=== PATIENT | male | born 1975 | race Caucasian/White ===

== ENCOUNTER 2020-02-02 03:09 | Inpatient (IN) | payer OTHER ==
[~2020-02-02] VITALS: Ht 185.4 cm; Wt 130.6 kg
[2020-02-02] MEDS ORDERED: MORPHINE SULFATE 4 MG/ML, 1ML ONE ×2 (03:28→03:49)
[2020-02-02] MEDS ORDERED: ONDANSETRON 2MG/ML, 2ML ONE ×2 (03:28→12:52)
[2020-02-02] MEDS ORDERED: ONDANSETRON 2MG/ML, 2ML IVPush ONE (03:30)
[2020-02-02] MEDS: MORPHINE SULFATE 4 MG/ML, 1ML IVPush PRN ×2 (03:31→03:53)
--- NOTE | 2020-02-02 03:35 | NUR ---
PT MEDICATED PER NOV, LABS SENT. PT TO CT
[2020-02-02 03:48] LABS: BASOPHILS # (AUTO) 0.02 x10^3/uL (0-0.1); BASOPHILS % (AUTO) 0 % (0-1); EOSINOPHILS % (AUTO) 1 % (1-7); LYMPHOCYTES # (AUTO) 0.97 x10^3/uL (1-3.4); LYMPHOCYTES % (AUTO) 12 % (22-44); MD NO; MEAN CORPUSCULAR HEMOGLOBIN 29.8 pg (27.5-34.5); MEAN CORPUSCULAR HGB CONC 33.7 g/dL (33.2-36.2); MEAN CORPUSCULAR VOLUME 88.6 fL (81-97); MEAN PLATELET VOLUME 8.3 fL (7.4-10.4); MONOCYTES # (AUTO) 0.47 x10^3/uL (0.2-0.8); MONOCYTES % (AUTO) 6 % (2-9); NEUTROPHILS # (AUTO) 6.62 x10^3/uL (1.8-6.8); NEUTROPHILS % (AUTO) 81 % (42-75); PLATELET COUNT 263 x10^3/uL (130-400); RED BLOOD COUNT 5.64 x10^6/uL (4.38-5.82); RED CELL DISTRIBUTION WIDTH 13.1 % (9.4-14.8)
[2020-02-02] MEDS ORDERED: OMNIPAQUE 350 MG/ML, 100ML BOTTLE ONE (03:55)
[2020-02-02 03:56] LABS: ALANINE AMINOTRANSFERASE 713 U/L (12-78); ALBUMIN 3.8 g/dL (3.4-5.0); ANION GAP 9 mmol/L (5-15); CALCIUM 8.7 mg/dL (8.5-10.1); CHLORIDE 111 mmol/L (98-107); CREATININE 1.21 mg/dL (0.7-1.3)
--- NOTE | 2020-02-02 03:58 | NUR ---
PT RESTING CALMLY, MONITORS IN PLACE, CALL LIGHT WITHIN REACH. AWAITING CT RESULTS
[2020-02-02] MEDS ORDERED: HYDROmorphone 2 MG/ML, 1ML IVPush PRN ×2 (04:00→13:30)
[2020-02-02] MEDS ORDERED: SODIUM CHLORIDE 0.9% 1,000ML IVBOLUS ONE (04:00)
[2020-02-02 04:01] LABS: ALKALINE PHOSPHATASE 138 U/L (45-117); BILIRUBIN,TOTAL 5.5 mg/dL (0.2-1.0); TOTAL PROTEIN 7.5 g/dL (6.4-8.2); TROPONIN I < 0.015 ng/mL (0.000-0.045)
--- NOTE | 2020-02-02 04:01 | NUR ---
NOTED PT'S SPO2-89% R/A, APPLIED O2 AT 2L N/C- SPO2-95%
--- NOTE | 2020-02-02 04:10 | NUR ---
PT TRANSFERRED TO TRAUMA 4. REPORT GIVEN TO HAMLET GILLESPIE.
--- NOTE | 2020-02-02 04:21 | NUR ---
assumed care of pt at this time, pt hr drops to 39 at times, md at bedside, US OF ABD DONE BY MD, PT IN NAD AT THIS TIME,PAIN 11/08.
[2020-02-02] MEDS ORDERED: LACTATED RINGERS 1,000 ML IVBOLUS ONE (04:30)
[2020-02-02] MEDS ORDERED: CEFTRIAXONE PMX 1GM/50ML 50 ML IV ONE (04:30)
[2020-02-02] MEDS ORDERED: METRONIDAZOLE PMX 500MG/100ML 100 ML IV ONE (04:30)
--- NOTE | 2020-02-02 04:30 | NUR ---
PIV PLACED RIGHT AC 18 G
--- NOTE | 2020-02-02 04:30 | NUR ---
MRI SCREENING FORM COMPLETE AT THIS TIME AND FAXED TO MRI
[2020-02-02] MEDS ORDERED: CEFTRIAXONE PMX 1GM/50ML 50 ML ONE (04:37)
[2020-02-02] MEDS ORDERED: METRONIDAZOLE PMX 500MG/100ML 100 ML ONE (04:37)
--- NOTE | 2020-02-02 04:39 | NUR ---
CONFIRMATION FROM MRI RECD
[2020-02-02] MEDS: LACTATED RINGERS 1,000 ML IV SCH ×8 (05:21→19:49)
[2020-02-02] MEDS ORDERED: hydrALAzine 20 MG/ML, 1ML IVPush PRN (05:30)
[2020-02-02] MEDS ORDERED: ONDANSETRON 2MG/ML, 2ML IVPush PRN (05:30)
--- NOTE | 2020-02-02 05:52 | NUR ---
REPORT TO MARY PT TO MRI AT THIS TIME WITH SURVEILLANCE DUAL RATE OFFICER THEN TO GO TO 486 2 WITH [facility] [facility] STAFF
[2020-02-02 06:17] LABS: CHOL/HDL RATIO 3.8; LDL/HDL RATIO 2.4 (0.5-3.0)
[2020-02-02 06:42] VITALS: BP 157/105
[2020-02-02] MEDS: morphine SULFATE 10 MG/ML, 1ML IVPush PRN ×2 (07:11→10:19)
[2020-02-02] MEDS ORDERED: CHLORHEXIDINE 15 ML UDC MM ONE (12:10)
[2020-02-02] MEDS ORDERED: CHLORHEXIDINE 15 ML UDC ONE (12:11)
[2020-02-02] MEDS ORDERED: FENTANYL PF 100 MCG/2ML ONE (12:31)
[2020-02-02] MEDS ORDERED: PROPOFOL 50 ML ONE (12:51)
[2020-02-02] MEDS ORDERED: MIDAZOLAM 1 MG/ML, 2ML ONE (12:51)
[2020-02-02] MEDS ORDERED: FENTANYL PF 250 MCG/5ML ONE (12:51)
[2020-02-02] MEDS ORDERED: SUCCINYLCHOLINE 20 MG/ML, 10ML ONE (12:52)
[2020-02-02] MEDS ORDERED: ROCURONIUM 10 MG/ML,10ML ONE (12:52)
[2020-02-02] MEDS ORDERED: PROPOFOL 10 MG/ML, 20ML ONE (12:52)
[2020-02-02] MEDS ORDERED: OXYcodone 5 MG/5 ML ORAL.SOL UDC PO PRN (13:30)
[2020-02-02] MEDS ORDERED: DIPHENHYDRAMINE 50 MG/ML, 1ML IVPush PRN (13:30)
[2020-02-02] MEDS ORDERED: DIAZEPAM 5 MG/ML, 2ML IVPush PRN (13:30)
[2020-02-02] MEDS ORDERED: EPHEDRINE 50 MG/ML, 1ML IM PRN (13:30)
[2020-02-02] MEDS ORDERED: EPHEDRINE 50 MG/ML, 1ML IVPush PRN (13:30)
[2020-02-02] MEDS ORDERED: ONDANSETRON ODT 8 MG PO PRN (13:30)
[2020-02-02] MEDS ORDERED: ONDANSETRON 2MG/ML, 2ML IV PRN (13:30)
[2020-02-02] MEDS ORDERED: MEPERIDINE/PF 25MG/ML,1ML IVPush PRN (13:30)
[2020-02-02] MEDS ORDERED: FENTANYL PF 100 MCG/2ML IV PRN (13:30)
[2020-02-02] MEDS ORDERED: LABETALOL 5MG/ML, 20ML IV PRN (13:30)
[2020-02-02] MEDS ORDERED: PROMETHAZINE 25 MG/ML, 1ML IV PRN (13:30)
[2020-02-02] MEDS ORDERED: LACTATED RINGERS 500 ML IVBOLUS ONE (14:00)
[2020-02-02] MEDS ORDERED: INDOMETHACIN 50 MG SUPP.RECT PR ONE (14:00)
[2020-02-02] MEDS ORDERED: INDOMETHACIN 50 MG SUPP.RECT ONE (14:06)
[2020-02-02] MEDS: METRONIDAZOLE PMX 500MG/100ML 100 ML IV SCH (16:20)
[2020-02-02 19:25] VITALS: BP 152/102
[2020-02-03] VITALS: BP 145/95
[2020-02-03] MEDS: METRONIDAZOLE PMX 500MG/100ML 100 ML IV SCH ×3 (00:22→17:15)
[2020-02-03] MEDS: LACTATED RINGERS 1,000 ML IV SCH ×4 (00:22→23:19)
[2020-02-03] MEDS: morphine SULFATE 10 MG/ML, 1ML IVPush PRN ×4 (03:15→23:18)
[2020-02-03] MEDS: CEFTRIAXONE PMX 1GM/50ML 50 ML IV SCH (05:12)
[2020-02-03 05:36] LABS: CHLORIDE 110 mmol/L (98-107)
[2020-02-03 05:43] LABS: ALANINE AMINOTRANSFERASE 373 U/L (12-78); ALBUMIN 2.7 g/dL (3.4-5.0); ALKALINE PHOSPHATASE 141 U/L (45-117); ANION GAP 7 mmol/L (5-15); BASOPHILS % (AUTO) 0 % (0-1); BILIRUBIN,TOTAL 1.3 mg/dL (0.2-1.0); CREATININE 0.82 mg/dL (0.7-1.3); EOSINOPHILS # (AUTO) 0.04 x10^3/uL (0-0.4); EOSINOPHILS % (AUTO) 0 % (1-7); LYMPHOCYTES # (AUTO) 0.63 x10^3/uL (1-3.4); LYMPHOCYTES % (AUTO) 7 % (22-44); MD NO; MEAN CORPUSCULAR HEMOGLOBIN 29.9 pg (27.5-34.5); MEAN CORPUSCULAR HGB CONC 33.4 g/dL (33.2-36.2); MEAN CORPUSCULAR VOLUME 89.3 fL (81-97); MEAN PLATELET VOLUME 8.3 fL (7.4-10.4); MONOCYTES # (AUTO) 0.64 x10^3/uL (0.2-0.8); MONOCYTES % (AUTO) 7 % (2-9); NEUTROPHILS # (AUTO) 7.92 x10^3/uL (1.8-6.8); NEUTROPHILS % (AUTO) 86 % (42-75); PLATELET COUNT 190 x10^3/uL (130-400); RED BLOOD COUNT 4.69 x10^6/uL (4.38-5.82); RED CELL DISTRIBUTION WIDTH 13.1 % (9.4-14.8); TOTAL PROTEIN 5.8 g/dL (6.4-8.2)
[2020-02-03 07:24] VITALS: BP 148/91
[2020-02-03] MEDS ORDERED: LACTATED RINGERS 1,000 ML IV SCH (10:30)
[2020-02-03] MEDS ORDERED: MAGNESIUM SULFATE PMX 2GM/50ML 50 ML IV ONE (14:00)
[2020-02-03 15:09] VITALS: BP 154/84
[2020-02-03 19:59] VITALS: BP 157/84
[2020-02-04 01:06] VITALS: BP 163/83
[2020-02-04] MEDS: METRONIDAZOLE PMX 500MG/100ML 100 ML IV SCH ×3 (01:30→20:24)
[2020-02-04] MEDS: morphine SULFATE 10 MG/ML, 1ML IVPush PRN ×4 (03:57→15:51)
[2020-02-04] MEDS: CEFTRIAXONE PMX 1GM/50ML 50 ML IV SCH (03:58)
[2020-02-04 05:20] LABS: ALBUMIN 2.7 g/dL (3.4-5.0); ANION GAP 7 mmol/L (5-15); CALCIUM 7.8 mg/dL (8.5-10.1); CHLORIDE 107 mmol/L (98-107)
[2020-02-04 05:24] LABS: ALANINE AMINOTRANSFERASE 230 U/L (12-78); ALKALINE PHOSPHATASE 138 U/L (45-117); CREATININE 0.71 mg/dL (0.7-1.3); TOTAL PROTEIN 6.2 g/dL (6.4-8.2)
[2020-02-04 05:34] LABS: BASOPHILS # (AUTO) 0.02 x10^3/uL (0-0.1); BASOPHILS % (AUTO) 0 % (0-1); EOSINOPHILS # (AUTO) 0.13 x10^3/uL (0-0.4); EOSINOPHILS % (AUTO) 1 % (1-7); LYMPHOCYTES # (AUTO) 0.93 x10^3/uL (1-3.4); LYMPHOCYTES % (AUTO) 8 % (22-44); MD NO; MEAN CORPUSCULAR HEMOGLOBIN 30.1 pg (27.5-34.5); MEAN CORPUSCULAR HGB CONC 33.6 g/dL (33.2-36.2); MEAN CORPUSCULAR VOLUME 89.6 fL (81-97); MEAN PLATELET VOLUME 8.1 fL (7.4-10.4); MONOCYTES # (AUTO) 0.95 x10^3/uL (0.2-0.8); MONOCYTES % (AUTO) 8 % (2-9); NEUTROPHILS # (AUTO) 9.47 x10^3/uL (1.8-6.8); NEUTROPHILS % (AUTO) 82 % (42-75); PLATELET COUNT 181 x10^3/uL (130-400); RED BLOOD COUNT 4.57 x10^6/uL (4.38-5.82); RED CELL DISTRIBUTION WIDTH 13.1 % (9.4-14.8)
[2020-02-04] MEDS: LACTATED RINGERS 1,000 ML IV SCH ×2 (06:05→19:49)
[2020-02-04 07:09] VITALS: BP 158/100
[2020-02-04] MEDS ORDERED: POTASSIUM PHOSPHATE 22 MEQ in SODIUM CHLORIDE 0.9% 250 ML IV ONE (09:00)
[2020-02-04] MEDS ORDERED: LACTATED RINGERS 1,000 ML IV SCH (10:30)
[2020-02-04 12:48] VITALS: BP 154/81
[2020-02-04] MEDS ORDERED: BUPIVACAINE/PF 0.5% ONE (15:51)
[2020-02-04] MEDS ORDERED: EPINEPHRINE 1 MG/ML, 1ML ONE (15:51)
[2020-02-04] MEDS ORDERED: FENTANYL PF 100 MCG/2ML ONE ×3 (17:27)
[2020-02-04] MEDS ORDERED: MIDAZOLAM 1 MG/ML, 2ML ONE (17:27)
[2020-02-04] MEDS ORDERED: SUCCINYLCHOLINE 20 MG/ML, 10ML ONE (17:42)
[2020-02-04] MEDS ORDERED: DEXAMETHASONE 4 MG/ML, 1ML ONE (17:42)
[2020-02-04] MEDS ORDERED: BUPIVACAINE/EPI 0.5% 1:200K IM ONE (17:56)
[2020-02-04] MEDS ORDERED: PROMETHAZINE 25 MG/ML, 1ML IVPush PRN (18:00)
[2020-02-04] MEDS ORDERED: LABETALOL 5MG/ML, 20ML IV PRN (18:00)
[2020-02-04] MEDS ORDERED: FENTANYL PF 100 MCG/2ML IV PRN (18:00)
[2020-02-04] MEDS ORDERED: hydrALAzine 20 MG/ML, 1ML IV PRN (18:00)
[2020-02-04] MEDS ORDERED: OXYcodone 5 MG/5 ML ORAL.SOL UDC PO PRN (18:00)
[2020-02-04] MEDS ORDERED: HYDROmorphone 1 MG/ML, 1ML INJ IVPush PRN (18:00)
[2020-02-04] MEDS ORDERED: DIPHENHYDRAMINE 50 MG/ML, 1ML IVPush PRN (18:00)
[2020-02-04] MEDS ORDERED: MIDAZOLAM 1 MG/ML, 2ML IV PRN (18:00)
[2020-02-04] MEDS ORDERED: EPHEDRINE 50 MG/ML, 1ML IVPush PRN (18:00)
[2020-02-04] MEDS ORDERED: MEPERIDINE/PF 25MG/0.5ML IVPush PRN (18:00)
[2020-02-04] MEDS ORDERED: LORazepam 2 MG/ML, 1ML IVPush PRN (18:00)
[2020-02-04] MEDS ORDERED: ONDANSETRON 2MG/ML, 2ML IVPush PRN (18:00)
[2020-02-04] MEDS ORDERED: PROMETHAZINE 12.5 MG SUPP PR PRN (18:00)
[2020-02-04] MEDS ORDERED: ALBUTEROL SULFATE 2.5 MG/3 ML NPPB PRN (18:00)
[2020-02-04] MEDS ORDERED: ROCURONIUM 10MG/ML,5ML ONE (18:23)
[2020-02-04] MEDS ORDERED: SUGAMMADEX 200 MG/2 ML IVPush ONE (18:23)
[2020-02-04] MEDS ORDERED: ONDANSETRON 2MG/ML, 2ML ONE ×2 (18:23)
[2020-02-04] MEDS ORDERED: PROPOFOL 10 MG/ML, 20ML ONE (18:23)
[2020-02-04 19:30] VITALS: BP 147/95
[2020-02-05 02:30] VITALS: BP 150/104
[2020-02-05] MEDS: CEFTRIAXONE PMX 1GM/50ML 50 ML IV SCH (04:03)
[2020-02-05] MEDS: morphine SULFATE 10 MG/ML, 1ML IVPush PRN ×4 (04:13→23:23)
[2020-02-05 04:21] LABS: BASOPHILS # (AUTO) 0.02 x10^3/uL (0-0.1); BASOPHILS % (AUTO) 0 % (0-1); EOSINOPHILS % (AUTO) 0 % (1-7); LYMPHOCYTES # (AUTO) 0.37 x10^3/uL (1-3.4); LYMPHOCYTES % (AUTO) 3 % (22-44); MD NO; MEAN CORPUSCULAR HEMOGLOBIN 29.5 pg (27.5-34.5); MEAN CORPUSCULAR HGB CONC 32.8 g/dL (33.2-36.2); MEAN CORPUSCULAR VOLUME 90.1 fL (81-97); MEAN PLATELET VOLUME 8.2 fL (7.4-10.4); MONOCYTES # (AUTO) 0.36 x10^3/uL (0.2-0.8); MONOCYTES % (AUTO) 3 % (2-9); NEUTROPHILS # (AUTO) 11.91 x10^3/uL (1.8-6.8); NEUTROPHILS % (AUTO) 94 % (42-75); PLATELET COUNT 216 x10^3/uL (130-400); RED BLOOD COUNT 4.74 x10^6/uL (4.38-5.82); RED CELL DISTRIBUTION WIDTH 13.1 % (9.4-14.8)
[2020-02-05 04:28] LABS: ALANINE AMINOTRANSFERASE 205 U/L (12-78); ALBUMIN 2.6 g/dL (3.4-5.0); ANION GAP 9 mmol/L (5-15); CHLORIDE 105 mmol/L (98-107); CREATININE 0.73 mg/dL (0.7-1.3)
[2020-02-05 04:31] LABS: ALKALINE PHOSPHATASE 118 U/L (45-117); BILIRUBIN,TOTAL 0.7 mg/dL (0.2-1.0); TOTAL PROTEIN 6.5 g/dL (6.4-8.2)
[2020-02-05] MEDS: METRONIDAZOLE PMX 500MG/100ML 100 ML IV SCH (04:39)
[2020-02-05] MEDS: LACTATED RINGERS 1,000 ML IV SCH ×2 (05:42→16:30)
[2020-02-05 07:10] VITALS: BP 150/84
[2020-02-05 12:18] VITALS: BP 145/78
[2020-02-05] MEDS ORDERED: CALCIUM CARBONATE 500 MG TAB.CHEW ONE (16:24)
[2020-02-05] MEDS: ACETAMINOPHEN 325 MG TABLET PO PRN (16:25)
[2020-02-05] MEDS ORDERED: CALCIUM CARBONATE 500 MG TABLET PO PRN (16:30)
[2020-02-05] MEDS ORDERED: CALCIUM CARBONATE 500 MG TAB.CHEW PO PRN (16:30)
[2020-02-05 19:56] VITALS: BP 136/89
[2020-02-06 00:22] VITALS: BP 143/82
[2020-02-06] MEDS: morphine SULFATE 10 MG/ML, 1ML IVPush PRN (02:56)
[2020-02-06] MEDS: LACTATED RINGERS 1,000 ML IV SCH (05:38)
[2020-02-06 05:58] LABS: BASOPHILS % (AUTO) 0 % (0-1); EOSINOPHILS # (AUTO) 0.22 x10^3/uL (0-0.4); EOSINOPHILS % (AUTO) 2 % (1-7); LYMPHOCYTES # (AUTO) 0.92 x10^3/uL (1-3.4); LYMPHOCYTES % (AUTO) 8 % (22-44); MD NO; MEAN CORPUSCULAR HEMOGLOBIN 30.1 pg (27.5-34.5); MEAN CORPUSCULAR HGB CONC 33.4 g/dL (33.2-36.2); MEAN CORPUSCULAR VOLUME 90.1 fL (81-97); MEAN PLATELET VOLUME 8.3 fL (7.4-10.4); MONOCYTES # (AUTO) 0.96 x10^3/uL (0.2-0.8); MONOCYTES % (AUTO) 8 % (2-9); NEUTROPHILS # (AUTO) 10.19 x10^3/uL (1.8-6.8); NEUTROPHILS % (AUTO) 83 % (42-75); PLATELET COUNT 243 x10^3/uL (130-400); RED BLOOD COUNT 4.77 x10^6/uL (4.38-5.82); RED CELL DISTRIBUTION WIDTH 13.4 % (9.4-14.8)
[2020-02-06 06:11] LABS: ALBUMIN 2.6 g/dL (3.4-5.0); ANION GAP 6 mmol/L (5-15); CALCIUM 7.9 mg/dL (8.5-10.1); CHLORIDE 105 mmol/L (98-107)
[2020-02-06 06:15] LABS: ALANINE AMINOTRANSFERASE 165 U/L (12-78); ALKALINE PHOSPHATASE 104 U/L (45-117); BILIRUBIN,TOTAL 0.8 mg/dL (0.2-1.0); CREATININE 0.89 mg/dL (0.7-1.3); TOTAL PROTEIN 6.4 g/dL (6.4-8.2)
[2020-02-06 07:30] VITALS: BP 158/109
[2020-02-06] MEDS: ACETAMINOPHEN 325 MG TABLET PO PRN ×2 (08:55→13:05)
[2020-02-06] MEDS ORDERED: OXYC5TAB3 PO (10:20)
== END 2020-02-06 18:44 | disposition home or self-care (01) | DRG 417 ==
LOC: ED 05:06 → EDIP 05:20 → 4EST 06:33
PROVIDERS: ADMIT Internal Medicine; ATTEND Hospitalist
PROC: BF101ZZ Fluoroscopy of Bile Ducts using Low Osmolar Contrast (ICD-10-PCS; 2020-02-02)
PROC: 0FC98ZZ Extirpation of Matter from Common Bile Duct, Via Natural or Artificial Opening Endoscopic (ICD-10-PCS; principal; 2020-02-02 12:00)
PROC: 0FT44ZZ Resection of Gallbladder, Percutaneous Endoscopic Approach (ICD-10-PCS; 2020-02-03)
DX: K80.65 Calculus of gallbladder and bile duct with chronic cholecystitis with obstruction (principal); K85.10 Biliary acute pancreatitis without necrosis or infection; E66.9 Obesity, unspecified; E83.39 Other disorders of phosphorus metabolism; E83.42 Hypomagnesemia; E87.6 Hypokalemia; I10 Essential (primary) hypertension; K57.30 Diverticulosis of large intestine without perforation or abscess without bleeding; R94.5 Abnormal results of liver function studies; K82.8 Other specified diseases of gallbladder; Z68.38 Body mass index [BMI] 38.0-38.9, adult; Z98.84 Bariatric surgery status
CPT/HCPCS: 36415; 74328; 96361; 96374; 96375; 99291; S0020; 71275; 74175; 74181; 80053; 80061; 83036; 83605; 83690; 83735; 84100; 84443; 84484; 85025; 87040; 88304; 93005; C1729; G0378; J0171; J0696; J1100; J2250; J2405; J2704; J3010; J7120; Q9967; C1769; J0330; J0360; J2270; J3475; J7030; J7050